=== PATIENT | male | born 1980 | race Caucasian/White ===

== ENCOUNTER 2016-10-30 14:36 | Emergency (ER) | payer OTHER ==
[2016-10-30] MEDS ORDERED: IOPAMIDOL 370 (76%) 100 ML VIAL IV ONE (14:37)
[2016-10-30] MEDS ORDERED: ASPIRIN CHEWTAB 81 MG TABLET ONE (15:37)
[2016-10-30 15:51] LABS: ABSOLUTE NEUTROPHIL COUNT 6.1 K/mm3 (1.8-7.7); BASO % 0.4 % (0.2-1.0); EOS # 0.2 (0.0-0.5); EOS % 2.5 % (0.9-2.9); HEMATOCRIT 45.7 % (32.0-52.0); HEMOGLOBIN 15.3 gm/l (14.0-18.0); IMM NEUT% 0.3 % (0-1); LYMPH % 21.6 % (15-45); MEAN CELL VOLUME 83.1 fl (80.0-94.0); MEAN CORPUSCULAR HEMOGLOBIN 27.8 pg (27.0-31.0); MEAN CORPUSCULAR HGB CONC 33.5 g/dl (33.0-37.0); MEAN PLATELET VOLUME 9.2 fl (7.4-10.4); MONO # 0.8 (0.0-0.8); NEUT % 66.2 % (43-75); PLATELET COUNT 263 K/mm3 (130-400); RED CELL DISTRIBUTION WIDTH 12.2 % (11.5-14.5)
[2016-10-30 16:00] LABS: ALB/GLOB RATIO 1.5 (>1.0); ALBUMIN 4.1 gm/dL (3.5-5.7); CALCIUM 8.6 mg/dL (8.6-10.3)
--- NOTE | 2016-10-30 16:01 | RAD ---
10/30/2016 3:57 PM CHEST - 2 VIEWS History: Chest pain since last night Comparison: None Findings: Two views of the chest are obtained. The lungs are clear with out effusion or pneumothorax. The cardiomediastinal silhouette is unremarkable.. The osseous structures are intact.. IMPRESSION: No acute intrathoracic process.
[2016-10-30 16:06] LABS: TROPONIN I < 0.01 ng/ml (0.0-0.06)
[2016-10-30 16:10] LABS: CKMB ISOENZYME 2.3 ng/ml (0.6-6.3)
[2016-10-30 16:27] LABS: D-DIMER 0.6 mg/L FEU (0.20-0.50); INR 0.99; PROTHROMBIN TIME 10.4 SECONDS (9.3-11.4)
--- NOTE | 2016-10-30 17:44 | CT ---
CTA CHEST FOR PE COMPARISON: Chest 2 views, 10/30/2016 HISTORY: Chest pain. Elevated d-dimer. Technique: Intravenous injection 80 mL Isovue-370. Using a [employer] Aquilion [address] scanner, following a CT angiogram protocol, images obtained through the thorax. Under concurrent supervision and interpretation, requiring a separate 3-D workstation, the technologist created 3-D CT angiograms. An automated dose reduction technique was used to minimize patient radiation dose. Dose information: CTDIvol (mGy): 7.70, 179.30, 16.80 DLP(mGycm): 593.00 FINDINGS: Pulmonary arteries and veins: Excellent contrast opacification. No pulmonary embolism. Aorta: Normal Heart and coronary arteries: Normal. Lungs: Normal. Trachea and bronchi: Normal. Mediastinum and rosa: Normal. Pleura and pericardium: Normal. Chest wall: Normal. Spine: Normal. Upper abdomen:Normal. 3-D CT angiogram: Normal. IMPRESSION: 1. Normal CT pulmonary angiogram. No pulmonary aneurysm.. 2. Incidentally noted 11 mm sclerotic nodule in the left side of the thyroid cartilage. Start surveillance with 2 view soft tissue neck radiographs in 6 months. The results of the recommendation were discussed with Genaro Jewell M.D. 10/30/2016 at 17:35
[2016-10-30] MEDS ORDERED: IBUPROFEN 600 MG TABLET ONE (17:48)
== END 2016-10-30 18:00 | disposition home or self-care (01) ==
LOC: ED 14:36
DX: R07.89 Other chest pain (principal); R09.1 Pleurisy; D68.9 Coagulation defect, unspecified; I45.10 Unspecified right bundle-branch block
CPT/HCPCS: 83690; 85379; 85025; 82553; 80053; 85610; 84484; 71020; 71275; 99284 ×2; 93005; A9270 ×2; Q9967